=== PATIENT | female | born 1990 | race Caucasian/White ===

== ENCOUNTER 2017-01-26 20:34 | Emergency (ER) | payer OTHER ==
[~2017-01-26] VITALS: Ht 152.4 cm; Wt 50.5 kg
[2017-01-26 20:55] VITALS: Ht 152.4 cm; Wt 50.5 kg
[2017-01-26] MEDS ORDERED: DIPHENHYDRAMINE 50 MG INJ IV STA (22:00)
[2017-01-26] MEDS ORDERED: SOD CHLORIDE 0.9% 1,000 ML IV STA (22:00)
[2017-01-26] MEDS ORDERED: METOCLOPRAMIDE 10 MG INJ IV STA (22:00)
[2017-01-26] MEDS ORDERED: KETOROLAC 30 MG INJ IV STA (22:00)
[2017-01-26 22:48] LABS: ADD SCAN DIFF NO
[2017-01-26 22:51] LABS: BASOPHIL # 0.1 10^3/ul (0.0-0.1); EOSINOPHILS # 0.3 10^3/ul (0.0-0.5); EOSINOPHILS % 3.2 % (0.0-7.0); HEMATOCRIT 37.8 % (37.0-47.0); HEMOGLOBIN 12.7 g/dl (12.0-16.0); LYMPHOCYTES # 2.8 10^3/ul (0.8-2.9); LYMPHOCYTES % 33.8 % (15.0-51.0); MEAN CORPUSCULAR HEMOGLOBIN 30.9 pg (29.0-33.0); MEAN CORPUSCULAR HGB CONC 33.6 g/dl (32.0-37.0); MEAN PLATELET VOLUME 9.9 fl (7.4-10.4); MONOCYTE # 0.5 10^3/ul (0.3-0.9); MONOCYTES % 6.3 % (0.0-11.0); NEUTROPHIL # 4.6 10^3/ul (1.6-7.5); NEUTROPHILS % 55.5 % (39.0-77.0); PLATELET COUNT 438 10^3/UL (140-415); RED BLOOD COUNT 4.11 10^6/ul (4.20-5.40); RED CELL DISTRIBUTION WIDTH 12.9 % (11.5-14.5); WHITE BLOOD COUNT 8.3 10^3/ul (4.8-10.8)
--- NOTE | 2017-01-26 22:53 | RADRPT ---
PROCEDURE: CT Head without. CLINICAL INDICATION: Headache. TECHNIQUE: The study was performed utilizing a multi-slice, multidetector CT scanner. Direct spira l 1 mm axial sections were obtained through the head without the use of intravenous contrast materia l. 1 or more of the following dose reduction techniques were utilized: Automated exposure control, adjustment of the mA and/or kV according to patient's size, iterative reconstruction technique. Co marjan and sagittal reformations were obtained. The images were reviewed on a PACS workstation. RADIATION DOSE: CTDIvol: 40.2 mGyDLP: 768.2 mGy-cm COMPARISON: No prior studies are available for comparison. FINDINGS: There is no intracranial hemorrhage, extra-axial fluid collection, mass lesion, midline shift or hyd rocephalus. The ventricles, sulci and cisterns are within normal limits. The white matter is unrem arkable. The marshall-white matter differentiation is preserved. The basal cisterns are patent. The m idline structures are intact. The orbits, calvarium and extracranial soft tissues are normal in gabriel earance. Partial visualization of the paranasal sinuses demonstrates moderate inflammatory changes o f the left maxillary sinus, bilateral ethmoid air cells and bilateral sphenoid sinuses. The mastoid air cells and middle ear cavities are normally aerated. IMPRESSION: 1. No acute intracranial abnormality. No intracranial hemorrhage, extra-axial fluid collection, ma ss lesion or hydrocephalous. 2. Moderate inflammatory changes of the paranasal sinuses as discussed above, incompletely evaluate d. RPTAT: HGAS .Andi Bearden MD, Date Time Electronically viewed and signed by .Andi Bearden MD, MD on 01/26/2017 22:52 .S/
[2017-01-26 23:06] LABS: INR 0.92; PROTIME 12.4 Sec (12.2-14.2)
[2017-01-26 23:07] LABS: PARTIAL THROMBOPLASTIN TIME 31.3 Sec (25.0-35.0)
[2017-01-26 23:09] LABS: CALCIUM 9.4 mg/dl (8.4-10.2); CREATININE 0.81 mg/dl (0.44-1.00); POTASSIUM 3.5 mmol/L (3.5-5.1)
[2017-01-26] MEDS ORDERED: NAPR-260 PO (23:56)
[2017-01-26] MEDS ORDERED: HYDR-906 PO (23:56)
[2017-01-26] MEDS ORDERED: morphine 4 MG/ML VIAL IV STA (23:59)
--- NOTE | 2017-01-27 00:10 | ERD ---
ER Documentation Chief Complaint Date/Time DATE: 01/27/17 TIME: 00:08 Chief Complaint tejeda x 4 days; nausea HPI This is a 26-year-old female presents to the ER with a headache for the last 4 days. Headache is located on the right side of her head and is throbbing and sharp in quality. It is constant. Patient has been trying to take Tylenol ibuprofen however headache always returns. She denies any vomiting however does have nausea. She admits to photophobia. She has not had any fevers or chills. She denies any neck pain or neck stiffness. She does not have any urinary frequency or dysuria. There is no history of trauma. She denies any vision loss or vision changes. ROS 12 point review of systems was done, all negative except per HPI. Medications Home Meds Active Scripts Hydrocodone/Acetaminophen ([place] 5-325 Tablet) 1 Each Tablet, 1 TAB PO Q6H Y for PAIN, #10 TAB Prov:HARRY,KRISTEN C 01/26/17 Naproxen* (Naprosyn*) 500 Mg Tablet, 500 MG PO BID Y for PAIN AND/OR INFLAMMATION, #30 TAB Prov:HARRY,KRISTEN C 01/26/17 Allergies Allergies: Coded Allergies: Shellfish (Verified Allergy, Mild, RASH, 08/28/12) SHRIMP CRAB PMhx/Soc Medical and Surgical Hx: pt denies Medical Hx, pt denies Surgical Hx Hx Alcohol Use: Yes (quit 5 years ago) Hx Substance Use: Yes (meth, marijuana quit 5 years ago) Hx Tobacco Use: No Smoking Status: Never smoker Physical Exam Vitals Vital Signs Date Time Temp Pulse Resp B/P Pulse Ox O2 Delivery O2 Flow Rate FiO2 01/26/17 20:55 98.5 63 18 109/63 99 Physical Exam GENERAL: The patient is well developed and appropriate for usual state of health , in no apparent distress. HEENT: Atraumatic. Conjunctivae are pink. Pupils equal, round, and reactive to light. Extraocular muscles are grossly intact. Bilateral tympanic membranes are clear with no evidence of erythema, bulging or perforation. No sinus tenderness. NECK: C-spine is soft and supple. There is no cervical lymphadenopathy. CHEST: Clear to auscultation bilaterally. There are no rales, wheezes or rhonchi. HEART: Regular rate and rhythm. No murmurs, clicks, rubs or gallops. EXTREMITIES: Equal pulses bilaterally. There is no peripheral clubbing, cyanosis or edema. No focal swelling or erythema. Full range of motion. Grossly neurovascularly intact. NEURO: Alert and oriented. Cranial nerves II through XII are intact. Motor strength in all 4 extremities with 5/5 strength. Sensation grossly intact. Normal speech and gait. Negative Rhomberg. +2 DTRs. SKIN: There is no apparent rash or petechia. The skin is warm and dry. Result Diagram: 01/26/17221901/26/172219 Results 24 hrs Laboratory Tests Test 01/26/17 22:20 White Blood Count 8.310^3/ul Red Blood Count 4.1110^6/ul Hemoglobin 12.7g/dl Hematocrit 37.8% Mean Corpuscular Volume 92.0fl Mean Corpuscular Hemoglobin 30.9pg Mean Corpuscular Hemoglobin Concent 33.6g/dl Red Cell Distribution Width 12.9% Platelet Count 97081^3/UL Mean Platelet Volume 9.9fl Neutrophils % 55.5% Lymphocytes % 33.8% Monocytes % 6.3% Eosinophils % 3.2% Basophils % 1.0% Nucleated Red Blood Cells % 0.0/100WBC Neutrophils # 4.610^3/ul Lymphocytes # 2.810^3/ul Monocytes # 0.510^3/ul Eosinophils # 0.310^3/ul Basophils # 0.110^3/ul Nucleated Red Blood Cells # 0.010^3/ul Prothrombin Time 12.4Sec Prothrombin Time Ratio 1.0 INR International Normalized Ratio 0.92 Activated Partial Thromboplast Time 31.3Sec Sodium Level 140mmol/L Potassium Level 3.5mmol/L Chloride Level 102mmol/L Carbon Dioxide Level 28mmol/L Anion Gap 14 Blood Urea Nitrogen 13mg/dl Creatinine 0.81mg/dl Glucose Level 92mg/dl Calcium Level 9.4mg/dl Current Medications Medications (Trade) Dose Ordered Sig/Alana Route PRN Reason Start Time Stop Time Status Last Admin Dose Admin Sodium Chloride (NS) 1,000 ml @ 1,000 mls/hr Q1H STAT IV 01/26/17 22:00 01/26/17 22:59 DC 01/26/17 22:26 Metoclopramide HCl (Reglan) 10 mg ONCE STAT IV 01/26/17 22:00 01/26/17 22:02 DC 01/26/17 22:24 Ketorolac Tromethamine (Toradol) 30 mg ONCE STAT IV 01/26/17 22:00 01/26/17 22:02 DC 01/26/17 22:34 Diphenhydramine HCl (Benadryl) 25 mg ONCE STAT IV 01/26/17 22:00 01/26/17 22:02 DC 01/26/17 22:24 Morphine Sulfate (morphine) 4 mg ONCE STAT IV 01/26/17 23:59 01/27/17 00:00 DC Procedures/MDM Differential Diagnosis includes but is not limited to; tension headache, migraine headache, cluster headache, sinus headache, nonspecific febrile headache, trigeminal neurologia, subdural hematoma, subarachnoid bleeding, meningitis, encephalitis. Patient is neurologically intact with no focal neurological deficits. Is likely migraine headache. Patient felt better with treatment in the ER. Suspicion for infectious etiology such as meningitis or encephalitis is low, patient does not have any meningeal signs. Suspicion for subdural hematoma or intracranial bleed is low. Patient will be sent home with [place] and naproxen. She is to follow-up with her primary care doctor within 1- 2 days or return to ER sooner if symptoms worsen. My medical decision making shared with the patient she understands and agrees with plan Departure Diagnosis: Primary Impression: Headache Condition: Stable Patient Instructions: Self-Care for Headaches Referrals: ALBERT VILLEGAS (PCP) Additional Instructions: Call your primary care doctor TOMORROW for an appointment during the next 1-2 days.See the doctor sooner or return here if your condition worsens before your appointment time. KRISTEN MCDONALD January 27, 2017 00:10
== END 2017-01-27 00:54 | disposition home or self-care (01) ==
LOC: FTE 20:34
DX: R51 Headache (principal)
CPT/HCPCS: 36415; 70450; 80048; 85025; 85610; 85730; 96361; 96374; 96375; J1200; J1885; J2270; J2765; J7030; Z7502

== ENCOUNTER 2017-11-15 15:06 | Emergency (ER) | END 2017-11-15 17:45 | disposition home or self-care (01) ==